=== PATIENT | female | born 1990 | race Caucasian/White ===

== ENCOUNTER → 2017-07-15 | Outpatient (CLI) | payer OTHER | LOC: MERGE 10:19 → FIMAGING 10:19 | PROVIDERS: ATTEND Advanced Practice Midwife | DX: Z34.01 Encounter for supervision of normal first pregnancy, first trimester (principal); G43.909 Migraine, unspecified, not intractable, without status migrainosus; Z82.79 Family history of other congenital malformations, deformations and chromosomal abnormalities; Z3A.10 10 weeks gestation of pregnancy ==

== ENCOUNTER → 2017-09-20 | Outpatient (CLI) | payer OTHER | LOC: FIMAGING 08:20 | PROVIDERS: ATTEND Advanced Practice Midwife | DX: O35.8XX0 Maternal care for other (suspected) fetal abnormality and damage, not applicable or unspecified (principal); O99.342 Other mental disorders complicating pregnancy, second trimester; F32.9 Major depressive disorder, single episode, unspecified; Z82.79 Family history of other congenital malformations, deformations and chromosomal abnormalities; Z3A.20 20 weeks gestation of pregnancy ==